=== PATIENT | female | born 1945 | race Caucasian/White ===

== ENCOUNTER 2019-01-02 01:08 | Observation (INO) | payer SELFPAY ==
[2019-01-02] MEDS ORDERED: ONDANSETRON 4 MG/2 ML VIAL IVPB ONE (01:51)
[2019-01-02] MEDS ORDERED: SODIUM CHLORIDE 1,000 ML IV STA ×2 (01:51→03:56)
[2019-01-02] MEDS ORDERED: FAMOTIDINE 20 MG/50 ML IVPB 20 MG/50 ML MG IVPB ONE ×2 (01:51→02:11)
--- NOTE | 2019-01-02 01:56 | PDOC ---
Attending Attestation - Resident Resident Name: SherronSolange - ED Attending Attestation I have performed the following: I have examined & evaluated the patient, The case was reviewed & discussed with the resident, I agree w/resident's findings & plan, Exceptions are as noted - HPI HPI: 73 yo F history HTN, DM presents with abdominal pain. She is currently here visiting from [place], has been in the [place] for the past 3 weeks. She denies any sick contacts. Denies fever. +N/V/D. She has had similar symptoms in the past but this is worse. - Physicial Exam PE: GENERAL: Awake, alert, and fully oriented, in no acute distress HEAD: No signs of trauma EYES: PERRLA, EOMI, sclera anicteric, conjunctiva clear ENT: Auricles normal inspection, hearing grossly normal, nares patent, oropharynx clear without exudates. Dry mucosa NECK: Normal ROM, supple, no lymphadenopathy, JVD, or masses LUNGS: Breath sounds equal, clear to auscultation bilaterally. No wheezes, and no crackles HEART: Regular rate and rhythm, normal S1 and S2, no murmurs, rubs or gallops ABDOMEN: Soft, +upper abdominal tenderness, +hyperactive bowel sounds. + Guarding, no rebound. No masses EXTREMITIES: Normal range of motion, no edema. No clubbing or cyanosis. No cords, erythema, or tenderness NEUROLOGICAL: Cranial nerves II through XII grossly intact. Normal speech, normal gait. Motor and sensation intact SKIN: Warm, Dry, normal turgor, no rashes or lesions noted. - Medical Decision Making Pt noted to have leukocytosis and elevated lactate. Will obtain CT to r/o any intraabdominal pathology.
[2019-01-02 01:59] VITALS: BMI 24.5
[2019-01-02] MEDS ORDERED: ONDANSETRON 4 MG/2 ML VIAL ONE (02:11)
[2019-01-02 02:16] LABS: BASO % 0.3 % (0-2.0); EOS % 0.4 % (0-4.5); HEMATOCRIT 39.6 % (32.4-45.2); HEMOGLOBIN 13.4 GM/dL (10.7-15.3); LYMPH % 7.4 % (8-40); MCH 30.9 pg (25.7-33.7); MCHC 33.7 g/dl (32.0-36.0); MEAN CELL VOLUME 91.6 fl (80-96); MEAN PLT VOLUME 8.7 fl (7.5-11.1); MONO % 5.9 % (3.8-10.2); PLATELET COUNT 249 K/MM3 (134-434); RBC 4.33 M/mm3 (3.60-5.2); WHITE BLOOD COUNT 14.7 K/mm3 (4.0-10.0)
--- NOTE | 2019-01-02 02:19 | PDOC ---
History of Present Illness - General Chief Complaint: Pain, Acute Stated Complaint: ABD PAIN Time Seen by Provider: 01/02/19 01:41 History Source: Patient, Family (daughter) Exam Limitations: Language Barrier - History of Present Illness Initial Comments: 01/02/19 02:10 Pt is a 73yo F with PMH of DM, HTN, Kidney stones BIBA to ED with complaints of sudden onset abdominal pain that started 2 hours ago. Per daughter pt was sitting and having severe pains. In the past 30 minutes she vomited (nbnb) 3 times and had diarrhea 3 times. She describes the pain as a sharp pain in the umbilicus/epigastric area that does not radiate. She did not eat anything out of the usual, no sick contacts. She lives in [place] and came here to visit end of November. Daughter brought her in because pt was feeling lightheaded and seemed to have passed out (did not fall, did not hit her head). No alcohol use. Denies fever, chills, chest pain, sob, back pain, urinary symptoms. PMD: in [place] PMH: see hpi PSH: cholecystectomy Meds: metformin? Allergies: ibuprofen Social: denies Past History - Past Medical History Allergies/Adverse Reactions: Allergies Allergy/AdvReac Type Severity Reaction Status Date / Time ibuprofen Allergy Unknown Verified 01/02/19 02:00 Home Medications: Ambulatory Orders Unobtainable 01/02/19 - Suicide/Smoking/Psychosocial Hx Smoking History: Never smoked Hx Alcohol Use: No Drug/Substance Use Hx: No Review of Systems - Review of Systems Constitutional: No: Chills, Fever, Weakness HEENTM: No: Symptoms Reported Respiratory: No: Cough, Shortness of Breath Cardiac (ROS): Yes: Lightheadedness, Syncope. No: Chest Pain, Palpitations ABD/GI: Yes: Diarrhea, Nausea, Vomiting, Abdominal cramping. No: Constipated, Rectal Bleeding, Tarry Stools : No: Symptoms Reported Musculoskeletal: No: Symptoms Reported Integumentary: No: Symptoms Reported Neurological: No: Symptoms reported *Physical Exam - Vital Signs Last Vital Signs Temp Pulse Resp BP Pulse Ox 97.8 F 60 16 115/71 96 01/02/19 01:30 01/02/19 01:30 01/02/19 01:30 01/02/19 01:30 01/02/19 01:30 - Physical Exam General Appearance: Yes: Nourished, Appropriately Dressed. No: Apparent Distress HEENT: positive: EOMI, JASMIN, Normal ENT Inspection Neck: positive: Trachea midline, Supple. negative: Lymphadenopathy (R), Lymphadenopathy (L) Respiratory/Chest: positive: Lungs Clear, Normal Breath Sounds. negative: Crackles Cardiovascular: positive: Regular Rhythm, Regular Rate, S1, S2. negative: Edema , JVD, Murmur Vascular Pulses: Carotid (R): 2+, Carotid (L): 2+, Dorsalis-Pedis (R): 2+, Doralis-Pedis (L): 2+ Gastrointestinal/Abdominal: positive: Normal Bowel Sounds, Soft. negative: Tender, Protuberent, Distended, Guarding, Rebound, Tenderness, Hernia Musculoskeletal: negative: CVA Tenderness Extremity: positive: Normal Capillary Refill Integumentary: positive: Normal Color, Dry, Warm Neurologic: positive: coil spring assembler II-XII NML intact, Fully Oriented, Alert, Normal Mood/ Affect, Normal Response, Motor Strength 01/28 ED Treatment Course - LABORATORY CBC & Chemistry Diagram: 01/02/19 02:07 01/02/19 02:07 Medical Decision Making - Medical Decision Making 01/02/19 02:19 Pt is a 73yo F with PMH of DM, HTN, Kidney stones BIBA to ED with complaints of sudden onset abdominal pain that started 2 hours ago. Per daughter pt was sitting and having severe pains. In the past 30 minutes she vomited (nbnb) 3 times and had diarrhea 3 times. She describes the pain as a sharp pain in the umbilicus/epigastric area that does not radiate. She did not eat anything out of the usual, no sick contacts. She lives in [place] and came here to visit end of November. Daughter brought her in because pt was feeling lightheaded and seemed to have passed out (did not fall, did not hit her head). No alcohol use. Denies fever, chills, chest pain, sob, back pain, urinary symptoms. Vitals: wnl PE: nontender abdomen ddx includes but not limited to GE, gastritis, pancreatitis, cholecystitis, gastroparesis, acs, colitis, AAA, ischemia, sbo -labs -ekg -fluids, zofran, pepcid 01/02/19 03:41 labs significant for wbc 14.7 and lact 3.3 will continue to give fluids. -CTAP -IV Tylenol 01/02/19 04:20 CTAP shows fibroid uterus and pelvic fluid. unexplained lactic acidosis and leukocytosis with abdominal pain. will admit obs. UA pending. *DC/Admit/Observation/Transfer Diagnosis at time of Disposition: Lactic acid increased Abdominal pain Qualifiers: Abdominal location: periumbilical Qualified Code(s): R10.33 - Periumbilical pain Leukocytosis Qualifiers: Leukocytosis type: unspecified Qualified Code(s): D72.829 - Elevated white blood cell count, unspecified - Discharge Dispostion Condition at time of disposition: Good - Referrals - Patient Instructions - Post Discharge Activity
[2019-01-02 02:39] LABS: ALBUMIN 3.4 g/dl (3.4-5.0); ALK PHOS 62 U/L (45-117); ANION GAP 5 MMOL/L (8-16); BILIRUBIN,TOTAL 0.4 mg/dL (0.2-1); BLOOD UREA NITROGEN 17 mg/dL (7-18); CHLORIDE 102 mmol/L (98-107); CO2 32 mmol/L (21-32); CREATININE 0.7 mg/dL (0.55-1.3); GLUCOSE,RANDOM 125 mg/dL (74-106); POTASSIUM 3.5 mmol/L (3.5-5.1); SGOT/AST 15 U/L (15-37); SGPT/ALT 18 U/L (13-61); SODIUM 138 mmol/L (136-145); TOT PROT 6.6 g/dl (6.4-8.2)
[2019-01-02 02:47] LABS: LIPASE 196 U/L (73-393)
[2019-01-02] MEDS ORDERED: ACETAMINOPHEN 1000 MG/100 ML VIAL (NON FORMULARY) IVPB ONE (03:56)
[2019-01-02] MEDS ORDERED: ACETAMINOPHEN INJECTION 100 ML IVPB ONE (03:59)
[2019-01-02] MEDS ORDERED: ONDANSETRON 4 MG/2 ML VIAL IVPUSH PRN (05:19)
--- NOTE | 2019-01-02 05:31 | HP ---
CHIEF COMPLAINT: abd pain PCP: HISTORY OF PRESENT ILLNESS: Patient is a 73 y/o F w/ PMHx DM, HTN, kidney stones, s/p CCY, BIBA c/o sudden onset abd pain, non-radiating, centered on epigastrum, since several hours earlier, a/w NBNB vomiting x 3 and diarrhea x 3. Additionally Pt felt light- headed and became lethargic and her daughter activated EMS. She is from [place] where she receives her medical care and came to visit family in late November. Unable to provide home medications; may be on metformin. On presentation , afebrile with stable vitals, however WBC 14.7 and l[address] acid [address]3. [address] a/p showed fibroid uterus and pelvic fluid, otherwise unremarkable per IOC. Received 2L NS, Ofirmev, Pepcid, and Zofran in ED and improved significantly, was largely asymptomatic by time of encounter. ER course was notable for: (1) WBC 14.7 and lactic acid 3.3 (2) CT a/p showed fibroid uterus and pelvic fluid, otherwise unremarkable (3) afebrile, stable VS Recent Travel: To [place] from [place] PAST MEDICAL HISTORY: As per HPI PAST SURGICAL HISTORY: As per HPI Social History: Smoking: Alcohol: Drugs: Family History: Allergies ibuprofen Allergy (Unknown, Verified 01/02/19 02:00) HOME MEDICATIONS: Home Medications Medication Instructions Recorded Unobtainable 01/02/19 REVIEW OF SYSTEMS As per [facility] PHYSICAL EXAMINATION Vital Signs - 24 hr 01/02/19 01:30 Temperature 97.8 F Pulse Rate 60 Respiratory 16 Rate Blood Pressure 115/71 O2 Sat by Pulse 96 Oximetry (%) GENERAL: A&Ox3, NAD HEENT: NC/AT, PERRLA, EOMI, MMM NECK: Normal range of motion, supple without lymphadenopathy, JVD, or masses. LUNGS: CTA b/l HEART: RRR no m/r/g ABDOMEN: +bs, soft, non-tender to deep palpation although affirms some residual pain in epigastrum, non-distended MUSCULOSKELETAL: Normal range of motion at all joints. No bony deformities or tenderness. No CVA tenderness. UPPER EXTREMITIES: 2+ pulses, warm, well-perfused. No cyanosis. No clubbing. No peripheral edema. LOWER EXTREMITIES: 2+ pulses, warm, well-perfused. No calf tenderness. No peripheral edema. NEUROLOGICAL: dock hand, motor, sensory systems w/o focal deficit PSYCHIATRIC: Cooperative. Good eye contact. Appropriate mood and affect. SKIN: Warm, dry, normal turgor, no rashes or lesions noted, normal capillary refill. Laboratory Results - last 24 hr 01/02/19 01/02/19 01/02/19 02:07 02:07 02:07 WBC 14.7 H RBC 4.33 Hgb 13.4 Hct 39.6 MCV 91.6 MCH 30.9 MCHC 33.7 RDW 13.0 Plt Count 249 MPV 8.7 Absolute Neuts (auto) 12.7 H Neutrophils % 86.0 H Lymphocytes % 7.4 L Monocytes % 5.9 Eosinophils % 0.4 Basophils % 0.3 Nucleated RBC % 0 Sodium 138 Potassium 3.5 Chloride 102 Carbon Dioxide 32 Anion Gap 5 L BUN 17 Creatinine 0.7 Creat Clearance w eGFR 82.02 Random Glucose 125 H Lactic Acid 3.3 H* Calcium 9.0 Total Bilirubin 0.4 AST 15 ALT 18 Alkaline Phosphatase 62 Troponin I Total Protein 6.6 Albumin 3.4 Lipase 01/02/19 02:07 WBC RBC Hgb Hct MCV MCH MCHC RDW Plt Count MPV Absolute Neuts (auto) Neutrophils % Lymphocytes % Monocytes % Eosinophils % Basophils % Nucleated RBC % Sodium Potassium Chloride Carbon Dioxide Anion Gap BUN Creatinine Creat Clearance w eGFR Random Glucose Lactic Acid Calcium Total Bilirubin AST ALT Alkaline Phosphatase Troponin I < 0.02 Total Protein Albumin Lipase 196 ASSESSMENT/PLAN: 73 y/o F w/ PMHx DM, HTN, kidney stones, s/p CCY, BIBA c/o sudden onset abd pain , non-radiating, centered on epigastrum, a/w NBNB vomiting and diarrhea, unremarkable CT a/p, found to have lactic acidosis and leukocytosis (unknown if on metformin) -likely viral GE -BCx, UCx, UA -empiric levaquin/flagyl -CXR -repeat CBC, BMP, Mg, Phos, lactate -BGM, SSI -LR @ 75 -Zofran PRN -SCDs for DVT PPx -NPO -observe on med/surg Visit type - Emergency Visit Emergency Visit: Yes Care time: The patient presented to the Emergency Department on the above date and was hospitalized for further evaluation of their emergent condition. - New Patient This patient is new to me today: Yes Date on this admission: 01/02/19 - Critical Care Critical Care patient: No
--- NOTE | 2019-01-02 05:31 | PN ---
Teaching Attending Note Name of Resident: Ricky Doshi ATTENDING PHYSICIAN STATEMENT I saw and evaluated the patient. I reviewed the resident's note and discussed the case with the resident. I agree with the resident's findings and plan as documented. SUBJECTIVE: Patient is a 73 year old woman with PMH of NIDDM, HTN, Kidney stones and cholecystectomy who presents to the ER with complaints of sudden onset abdominal pain that started 2 hours ago. Per daughter she was sitting and having severe pains. In the past 30 minutes prior to arrival she vomited 3 times and had diarrhea 3 times. She describes the pain as a sharp pain in the umbilicus/epigastric area that does not radiate. She did not eat anything unusual, no sick contacts. She lives in [place] and came here to visit end of November. Daughter brought her in because patient was feeling lightheaded and appeared like she was going to pass out. Denies alcohol or illicit drug use. Denies fever , chills, chest pain, SOB, back pain, dysuria or hematuria. OBJECTIVE: Alert Vital Signs Period Temp Pulse Resp BP Sys/Sandoval Pulse Ox Last 24 Hr 97.8 F 60 16 115/71 96 HEENT: No Jaundice, eye redness or discharge, PERRLA, EOMI. Normocephalic, atraumatic. External ears are normal and hearing is grossly intact. No nasal discharge. Neck: Supple, nontender. No palpable adenopathy or thyromegaly. No JVD Chest: Good effort. Clear to auscultation and percussion. Heart: Regular. No S3, rub or murmur Abdomen: Not distended, soft, periumblical and upper abdominal tenderness and no HSM. No rebound or guarding. Normal bowel sounds. Ext: Peripheral pulses intact. No leg edema. Skin: Warm and dry. No petechiae, rash or ecchymosis. Neuro: Alert. Oriented x3. CN 2-12 grossly intact. Sensation grossly intact in all four extremities and DTR are symmetric. Psych: Appropriate mood and affect. Good insight. Home Medications Medication Instructions Recorded Unobtainable 01/02/19 Abnormal Lab Results 01/02/19 01/02/19 01/02/19 02:07 02:07 02:07 WBC 14.7 H Absolute Neuts (auto) 12.7 H Neutrophils % 86.0 H Lymphocytes % 7.4 L Anion Gap 5 L Random Glucose 125 H Lactic Acid 3.3 H* ASSESSMENT AND PLAN: 1. Gastroenteritis - Viral gastroenteritis is a possible cause, but cannot rule out a bacterial etiology, and urinalysis is pending. Less likely is that she may have "passed" a kidney stone. CT abd/pelvis with IV contrast did not show any acute abnormality. Patient does not remember her medication list - may be on Metformin which may partly explain leukocytosis. Will trend lactic acid, get urinalysis, EKG, Flu swab, CXR, urine and blood cultures and send stool for analysis, ova and parasites and C. Diff. Already got bolus IV NS in the ER. Will continue IV NS and treat with IV Flagyl and Levaquin pending culture report. Consult GI. 2. DM For now, we will hold the home diabetes drugs and implement sliding scale insulin regimen. Provide comprehensive diabetes care with patient teaching and counseling about the importance of adherence to prescribed diabetes regimen, euglycemia, eye care and foot care. 3. DVT prophylaxis - Lovenox 40 mg SQ q 24 hours. 4. Advance directives - Full code
[2019-01-02] MEDS: INSULIN SLIDING SCALE (NOVOLOG) 1 VIAL SQ SCH ×4 (06:54→21:51)
[2019-01-02 07:17] LABS: PH,URINE 5.5 (5.0-8.0); URINE APPEARANCE CLEAR; URINE BILIRUBIN NEGATIVE (NEGATIVE); URINE COLOR YELLOW; URINE GLUCOSE (UA) NEGATIVE (NEGATIVE); URINE KETONE NEGATIVE (NEGATIVE); URINE LEUK ESTERASE NEGATIVE (NEGATIVE); URINE NITRITE NEGATIVE (NEGATIVE); URINE PROTEIN NEGATIVE (NEGATIVE); URINE UROBILINOGEN 0.2 mg/dL (0.2-1.0)
[2019-01-02] MEDS ORDERED: ACETAMINOPHEN 500 MG TABLET (FP) PO PRN (08:43)
--- NOTE | 2019-01-02 09:20 | PN ---
Teaching Attending Note Name of Resident: Tita Conrad ATTENDING PHYSICIAN STATEMENT I saw and evaluated the patient. I reviewed the resident's note and discussed the case with the resident. I agree with the resident's findings and plan as documented. SUBJECTIVE: Ms Hernandez complains of vomiting. Denies cp and sob. OBJECTIVE: Last Vital Signs Temp Pulse Resp BP Pulse Ox 36.6 C 69 18 105/50 L 97 01/02/19 08:54 01/02/19 08:54 01/02/19 08:54 01/02/19 08:54 01/02/19 08:54 Gen: nad Pulm: ctab w/o w/r/r CV: rrr w/o m/r/g Abd: +bs, s/nt/nd Ext: no c/c/e ASSESSMENT AND PLAN: Problem List - Problems (1) Gastroenteritis Assessment/Plan: -possible viral, but concerning since lactic acidosis and leukocytosis -hydration -continue empiric levaquin and flagyl -follow up stool studies -advance diet as tolerated Code(s): K52.9 - NONINFECTIVE GASTROENTERITIS AND COLITIS, UNSPECIFIED (2) Lactic acid increased Assessment/Plan: -improved with hydration Code(s): E87.2 - ACIDOSIS
[2019-01-02 09:49] LABS: BASO % 0.3 % (0-2.0); EOS % 0.9 % (0-4.5); HEMATOCRIT 38.2 % (32.4-45.2); HEMOGLOBIN 13.2 GM/dL (10.7-15.3); MCH 31.6 pg (25.7-33.7); MCHC 34.6 g/dl (32.0-36.0); MEAN CELL VOLUME 91.4 fl (80-96); MEAN PLT VOLUME 8.5 fl (7.5-11.1); MONO % 6.9 % (3.8-10.2); NEUT % 78.9 % (42.8-82.8); PLATELET COUNT 230 K/MM3 (134-434); RBC 4.18 M/mm3 (3.60-5.2); RDW 13.3 % (11.6-15.6); WHITE BLOOD COUNT 8.9 K/mm3 (4.0-10.0)
[2019-01-02] MEDS: LACTATED RINGERS SOLUTION 1,000 ML IV SCH (09:59)
[2019-01-02 10:00] LABS: ANION GAP 7 MMOL/L (8-16); BLOOD UREA NITROGEN 12 mg/dL (7-18); CHLORIDE 105 mmol/L (98-107); CO2 32 mmol/L (21-32); CREATININE 0.7 mg/dL (0.55-1.3); GLUCOSE,RANDOM 98 mg/dL (74-106); MAGNESIUM 1.5 mg/dL (1.8-2.4); PHOSPHOROUS 3.1 mg/dL (2.5-4.9); POTASSIUM 3.4 mmol/L (3.5-5.1); SODIUM 144 mmol/L (136-145)
[2019-01-02] MEDS ORDERED: HEPARIN NA (PORCINE) 5,000 UNITS/ML 1ML VIAL ONE (11:19)
[2019-01-02] MEDS: HEPARIN NA (PORCINE) 5,000 UNITS/ML 1ML VIAL SQ SCH ×2 (12:24→21:52)
--- NOTE | 2019-01-02 14:33 | EKG ---
Test Reason : Blood Pressure : / mmHG Vent. Rate : 081 BPM Atrial Rate : 081 BPM P-R Int : 198 ms QRS Dur : 084 ms QT Int : 380 ms P-R-T Axes : 083 071 036 degrees QTc Int : 441 ms SINUS RHYTHM WITH OCCASIONAL PREMATURE VENTRICULAR COMPLEXES NONSPECIFIC ST AND T WAVE ABNORMALITY ABNORMAL ECG NO PREVIOUS ECGS AVAILABLE Confirmed by MD Yovani, Mark ([id number]) on 01/02/2019 2:33:18 PM Referred By: Amy JOHN Confirmed By:Mark Pina MD
--- NOTE | 2019-01-02 18:59 | PN ---
Physical Exam: SUBJECTIVE: Patient seen and examined. She is still complaining of abdominal pain but improved, noticed small amount of blood on paper when wiping. OBJECTIVE: Vital Signs Period Temp Pulse Resp BP Sys/Sandoval Pulse Ox Last 24 Hr 97.5 F-98.4 F 59-69 16-20 105-145/50-84 94-97 GENERAL: The patient is awake, alert, and fully oriented, in no acute distress. HEAD: Normal with no signs of trauma. EYES: PERRL, extraocular movements intact, sclera anicteric. ENT: Oopharynx clear without exudates, moist mucous membranes. NECK: Trachea midline, full range of motion, supple. LUNGS: Breath sounds equal, clear to auscultation bilaterally, no wheezes, no crackles, no accessory muscle use. HEART: Regular rate and rhythm, S1, S2 without murmur, rub or gallop. ABDOMEN: Soft, nontender, nondistended, normoactive bowel sounds, no guarding, no rebound, no hepatosplenomegaly, no masses. EXTREMITIES: 2+ pulses, warm, well-perfused, no edema. NEUROLOGICAL: Normal speech, gait not observed. PSYCH: Normal mood, normal affect. SKIN: Warm, dry, normal turgor, no rashes. Laboratory Results - last 24 hr 01/02/19 01/02/19 01/02/19 02:07 02:07 02:07 WBC 14.7 H RBC 4.33 Hgb 13.4 Hct 39.6 MCV 91.6 MCH 30.9 MCHC 33.7 RDW 13.0 Plt Count 249 MPV 8.7 Absolute Neuts (auto) 12.7 H Neutrophils % 86.0 H Lymphocytes % 7.4 L Monocytes % 5.9 Eosinophils % 0.4 Basophils % 0.3 Nucleated RBC % 0 Sodium 138 Potassium 3.5 Chloride 102 Carbon Dioxide 32 Anion Gap 5 L BUN 17 Creatinine 0.7 Creat Clearance w eGFR 82.02 POC Glucometer Random Glucose 125 H Lactic Acid 3.3 H* Calcium 9.0 Phosphorus Magnesium Total Bilirubin 0.4 AST 15 ALT 18 Alkaline Phosphatase 62 Troponin I Total Protein 6.6 Albumin 3.4 Lipase Urine Color Urine Appearance Urine pH Ur Specific [place] Urine Protein Urine Glucose (UA) Urine Ketones Urine Blood Urine Nitrite Urine Bilirubin Urine Urobilinogen Ur Leukocyte Esterase 01/02/19 01/02/19 01/02/19 02:07 06:30 06:50 WBC RBC Hgb Hct MCV MCH MCHC RDW Plt Count MPV Absolute Neuts (auto) Neutrophils % Lymphocytes % Monocytes % Eosinophils % Basophils % Nucleated RBC % Sodium Potassium Chloride Carbon Dioxide Anion Gap BUN Creatinine Creat Clearance w eGFR POC Glucometer 98 Random Glucose Lactic Acid Calcium Phosphorus Magnesium Total Bilirubin AST ALT Alkaline Phosphatase Troponin I < 0.02 Total Protein Albumin Lipase 196 Urine Color Yellow Urine Appearance Clear Urine pH 5.5 Ur Specific [place] 1.042 H Urine Protein Negative Urine Glucose (UA) Negative Urine Ketones Negative Urine Blood Negative Urine Nitrite Negative Urine Bilirubin Negative Urine Urobilinogen 0.2 Ur Leukocyte Esterase Negative 01/02/19 01/02/19 01/02/19 08:40 09:15 09:15 WBC 8.9 RBC 4.18 Hgb 13.2 Hct 38.2 MCV 91.4 MCH 31.6 MCHC 34.6 RDW 13.3 Plt Count 230 MPV 8.5 Absolute Neuts (auto) 7.0 Neutrophils % 78.9 Lymphocytes % 13.0 D Monocytes % 6.9 Eosinophils % 0.9 D Basophils % 0.3 Nucleated RBC % 0 Sodium 144 Potassium 3.4 L Chloride 105 Carbon Dioxide 32 Anion Gap 7 L BUN 12 Creatinine 0.7 Creat Clearance w eGFR 82.02 POC Glucometer Random Glucose 98 Lactic Acid 2.1 H Calcium 8.0 L Phosphorus 3.1 Magnesium 1.5 L Total Bilirubin AST ALT Alkaline Phosphatase Troponin I Total Protein Albumin Lipase Urine Color Urine Appearance Urine pH Ur Specific [place] Urine Protein Urine Glucose (UA) Urine Ketones Urine Blood Urine Nitrite Urine Bilirubin Urine Urobilinogen Ur Leukocyte Esterase 01/02/19 01/02/19 12:20 16:45 WBC RBC Hgb Hct MCV MCH MCHC RDW Plt Count MPV Absolute Neuts (auto) Neutrophils % Lymphocytes % Monocytes % Eosinophils % Basophils % Nucleated RBC % Sodium Potassium Chloride Carbon Dioxide Anion Gap BUN Creatinine Creat Clearance w eGFR POC Glucometer 86 75 Random Glucose Lactic Acid Calcium Phosphorus Magnesium Total Bilirubin AST ALT Alkaline Phosphatase Troponin I Total Protein Albumin Lipase Urine Color Urine Appearance Urine pH Ur Specific [place] Urine Protein Urine Glucose (UA) Urine Ketones Urine Blood Urine Nitrite Urine Bilirubin Urine Urobilinogen Ur Leukocyte Esterase Active Medications Generic Name Dose Route Start Last Admin Trade Name Freq PRN Reason Stop Dose Admin Acetaminophen 500 mg 01/02/19 08:43 Tylenol - PO Q6H PRN PAIN LEVEL 4 - 6 Heparin Sodium (Porcine) 5,000 unit 01/02/19 10:00 01/02/19 12:24 Heparin - SQ 5,000 unit BID MARLA Administration Metronidazole 500 mg in 100 mls @ 100 mls/hr 01/02/19 05:30 01/02/19 17:35 Flagyl 500mg Premixed Ivpb - IVPB 100 mls/hr Q8H-IV MARLA Administration Lactated Ringer's 1,000 mls @ 75 mls/hr 01/02/19 05:30 01/02/19 09:59 Lactated Ringers Solution IV 75 mls/hr ASDIR MARLA Administration Insulin Aspart 1 vial 01/02/19 07:00 01/02/19 17:27 Novolog Vial Sliding Scale - SQ Not Given [facility] MARLA Protocol Ondansetron HCl 4 mg 01/02/19 05:19 Zofran Injection IVPUSH Q6H PRN NAUSEA ASSESSMENT/PLAN: 73 y/o F w/ PMHx DM, HTN, nephrolithiasis, s/p CCY, BIBA c/o sudden onset abd pain, non-radiating, centered on epigastrum, a/w NBNB vomiting and diarrhea, admitted for gastroenteritis with lactic acidosis. Gastroenteritis/Colitis/mesenteric ischemia: -unremarkable CT a/p, found to have lactic acidosis 3.3 that improved -leukocytosis of 14.7 -due to the patiet age ad comorbidieties will observe -BCx, UCx, UA -empiric levaquin/flagyl, will continue today -repeat CBC, BMP, Mg, Phos, lactate -Zofran PRN -stool studies ordered DMII: -BGM ACHS -ISS, ACHS - F/E/N;LR @ 75/no changes DVT PPX Heparin sq Dispo: observe on med/surg Problem List - Problems (1) Abdominal pain Code(s): R10.9 - UNSPECIFIED ABDOMINAL PAIN Qualifiers: Abdominal location: periumbilical Qualified Code(s): R10.33 - Periumbilical pain (2) Gastroenteritis Code(s): K52.9 - NONINFECTIVE GASTROENTERITIS AND COLITIS, UNSPECIFIED (3) Lactic acid increased Code(s): E87.2 - ACIDOSIS (4) Leukocytosis Code(s): D72.829 - ELEVATED WHITE BLOOD CELL COUNT, UNSPECIFIED Qualifiers: Leukocytosis type: unspecified Qualified Code(s): D72.829 - Elevated white blood cell count, unspecified Visit type - Emergency Visit Emergency Visit: Yes ED Registration Date: 01/02/19 Care time: The patient presented to the Emergency Department on the above date and was hospitalized for further evaluation of their emergent condition. - New Patient This patient is new to me today: No - Critical Care Critical Care patient: No
[2019-01-03] MEDS: LACTATED RINGERS SOLUTION 1,000 ML IV SCH ×2 (02:37→09:27)
[2019-01-03] MEDS ORDERED: PT OWN MED DRAWER 7, Y5N ONE (05:45)
[2019-01-03] MEDS: INSULIN SLIDING SCALE (NOVOLOG) 1 VIAL SQ SCH ×2 (06:29→11:28)
[2019-01-03 07:58] LABS: BASO % 0.5 % (0-2.0); EOS % 3.2 % (0-4.5); HEMATOCRIT 35.7 % (32.4-45.2); HEMOGLOBIN 12.4 GM/dL (10.7-15.3); LYMPH % 36.4 % (8-40); MCH 31.3 pg (25.7-33.7); MCHC 34.8 g/dl (32.0-36.0); MEAN PLT VOLUME 8.5 fl (7.5-11.1); MONO % 8.8 % (3.8-10.2); NEUT % 51.1 % (42.8-82.8); PLATELET COUNT 216 K/MM3 (134-434); RBC 3.96 M/mm3 (3.60-5.2); RDW 13.4 % (11.6-15.6)
[2019-01-03 08:25] LABS: ANION GAP 8 MMOL/L (8-16); BLOOD UREA NITROGEN 10 mg/dL (7-18); CALCIUM 7.7 mg/dL (8.5-10.1); CHLORIDE 105 mmol/L (98-107); CO2 31 mmol/L (21-32); CREATININE 0.7 mg/dL (0.55-1.3); GLUCOSE,RANDOM 86 mg/dL (74-106); MAGNESIUM 1.6 mg/dL (1.8-2.4); PHOSPHOROUS 3.3 mg/dL (2.5-4.9); POTASSIUM 3.1 mmol/L (3.5-5.1); SODIUM 144 mmol/L (136-145)
[2019-01-03] MEDS ORDERED: POTASSIUM CHLORIDE TABS 20 MEQ TABLET.ER (FP) PO ONE (09:04)
[2019-01-03] MEDS ORDERED: MAGNESIUM OXIDE 400 MG TABLET (FP) PO ONE (09:15)
[2019-01-03] MEDS: HEPARIN NA (PORCINE) 5,000 UNITS/ML 1ML VIAL SQ SCH (09:54)
--- NOTE | 2019-01-03 11:19 | PN ---
Teaching Attending Note Name of Resident: Tita Conrad ATTENDING PHYSICIAN STATEMENT I saw and evaluated the patient. I reviewed the resident's note and discussed the case with the resident. I agree with the resident's findings and plan as documented with exceptions below. SUBJECTIVE: Patient seen and examined. some epigastric discomfort, reports is like 'gas'. No further fevers, chills, nausea or vomiting. OBJECTIVE: Vital Signs Period Temp Pulse Resp BP Sys/Sandoval Pulse Ox Last 24 Hr 97.5 F-98.8 F 56-76 18-20 114-145/63-84 94-94 Intake & Output 12/31/18 01/01/19 01/02/19 01/03/19 23:59 23:59 23:59 23:59 Intake Total 450 900 Balance 450 900 Weight 164 lb General: sitting in chair in no acute distress Abdomen: soft, mild superficial epigastric tenderness, non tender otherwise, no voluntary or involuntary guarding or rigidity, positive bowel sounds Chest: CTAB, no rales or wheezing Extremities: no edema Home Medications Medication Instructions Recorded Glipizide 5 mg PO DAILY 01/02/19 Levothyroxine 125 mcg DAILY 01/02/19 Losartan/Hydrochlorothiazide 1 each PO DAILY 01/02/19 [Losartan-Hctz 100-25 mg Tab] Meclizine HCl 01/02/19 Active Medications Acetaminophen (Tylenol -) 500 mg PO Q6H PRN PRN Reason: PAIN LEVEL 4 - 6 Last Admin: 01/02/19 21:51 Dose: 500 mg Heparin Sodium (Porcine) (Heparin -) 5,000 unit SQ BID MARLA Last Admin: 01/03/19 09:54 Dose: 5,000 unit Lactated Ringer's (Lactated Ringers Solution) 1,000 mls @ 75 mls/hr IV ASDIR MARLA Last Admin: 01/03/19 02:37 Dose: 75 mls/hr Insulin Aspart (Novolog Vial Sliding Scale -) 1 vial SQ ACHS [facility]; Protocol Last Admin: 01/03/19 06:29 Dose: Not Given Ondansetron HCl (Zofran Injection) 4 mg IVPUSH Q6H PRN PRN Reason: NAUSEA Laboratory Results - last 24 hr 01/02/19 01/02/19 01/02/19 12:20 16:45 21:42 WBC RBC Hgb Hct MCV MCH MCHC RDW Plt Count MPV Absolute Neuts (auto) Neutrophils % Lymphocytes % Monocytes % Eosinophils % Basophils % Nucleated RBC % Sodium Potassium Chloride Carbon Dioxide Anion Gap BUN Creatinine Creat Clearance w eGFR POC Glucometer 86 75 85 Random Glucose Calcium Phosphorus Magnesium 01/03/19 01/03/19 01/03/19 06:27 07:00 07:00 WBC 5.0 RBC 3.96 Hgb 12.4 Hct 35.7 MCV 90.0 MCH 31.3 MCHC 34.8 RDW 13.4 Plt Count 216 MPV 8.5 Absolute Neuts (auto) 2.6 Neutrophils % 51.1 D Lymphocytes % 36.4 D Monocytes % 8.8 Eosinophils % 3.2 D Basophils % 0.5 Nucleated RBC % 0 Sodium 144 Potassium 3.1 L Chloride 105 Carbon Dioxide 31 Anion Gap 8 BUN 10 Creatinine 0.7 Creat Clearance w eGFR 82.02 POC Glucometer 82 Random Glucose 86 Calcium 7.7 L Phosphorus 3.3 Magnesium 1.6 L Microbiology 01/02/19 08:40 Blood - Peripheral Venous Blood Culture - Preliminary NO GROWTH OBTAINED AFTER 24 HOURS, INCUBATION TO CONTINUE FOR 4 DAYS. 01/02/19 08:15 Blood - Peripheral Venous Blood Culture - Preliminary NO GROWTH OBTAINED AFTER 24 HOURS, INCUBATION TO CONTINUE FOR [address] A/p results reviewed Microbiology 01/03/19 10:55 Stool Clostridioides difficile Antigen - Final 01/03/19 10:55 Stool Clostridioides difficile Toxin Assay - Final 01/02/19 08:40 Blood - Peripheral Venous Blood Culture - Preliminary NO GROWTH OBTAINED AFTER 24 HOURS, INCUBATION TO CONTINUE FOR 4 DAYS. 01/02/19 08:15 Blood - Peripheral Venous Blood Culture - Preliminary NO GROWTH OBTAINED AFTER 24 HOURS, INCUBATION TO CONTINUE FOR 4 DAYS. ASSESSMENT AND PLAN: 73 yof with PMHx of NIDM, HTN, kidney stones, s/p CCY, admitted with abdominal pain, vomiting, diarrhea and dehydration -Abdominal pain/vomiting/diarrhea, suspect self limiting gastroenteritis vs food poisoning -Dehydration -Leucocytosis, suspect from stress/dehydration rather than bacterial infection -Lactic acidosis suspect from dehydration -Hypokalemia -Hypomagnesemia -NIDDM -HTN -h/o kidney stones Plan: Leucocytosis resolved. afebrile. CT A/P neg for concerns. No further vomiting or diarrhea. monitor off abx. supportive care, IVF, PPI, maalox, zofran. Replete K/Mg. Stool C difficile neg, cultures pending but low suspicion and unlikely to change current management. Blood sugars noted, hold glipizide on d/c to be resumed based on blood sugars after discussion with PCP. Education provided to patient/family. BP rising, resume home BP meds. TOlerating diet well. Dispo d/c home today. Discussed with patient and nursing.
[2019-01-03 11:51] VITALS: TEMP 98.4
[2019-01-03 14:01] VITALS: BP 148/58; PULSE 59
--- NOTE | 2019-01-03 15:22 | DS ---
Physical Exam: SUBJECTIVE: Patient seen and examined, feeling good. OBJECTIVE: Vital Signs Period Temp Pulse Resp BP Sys/Sandoval Pulse Ox Last 24 Hr 98.4 F-98.8 F 56-76 17-19 114-148/58-66 94-96 PHYSICAL EXAM GENERAL: The patient is awake, alert, and fully oriented, in no acute distress, sitting in chair. HEAD: Normal with no signs of trauma. EYES: PERRL, extraocular movements intact, sclera anicteric. ENT: Oropharynx clear without exudates, moist mucous membranes. NECK: Trachea midline, full range of motion, supple. LUNGS: Breath sounds equal, clear to auscultation bilaterally, no wheezes, no crackles, no accessory muscle use. HEART: Regular rate and rhythm, S1, S2 without murmur, rub or gallop. ABDOMEN: Soft, nontender, nondistended, normoactive bowel sounds. EXTREMITIES: 2+ pulses, warm, no edema. NEUROLOGICAL: Normal speech, gait not observed. PSYCH: Normal mood, normal affect. SKIN: Warm, dry, normal turgor, no rashes. LABS Laboratory Results - last 24 hr 01/02/19 01/02/19 01/03/19 16:45 21:42 06:27 WBC RBC Hgb Hct MCV MCH MCHC RDW Plt Count MPV Absolute Neuts (auto) Neutrophils % Lymphocytes % Monocytes % Eosinophils % Basophils % Nucleated RBC % Sodium Potassium Chloride Carbon Dioxide Anion Gap BUN Creatinine Creat Clearance w eGFR POC Glucometer 75 85 82 Random Glucose Calcium Phosphorus Magnesium 01/03/19 01/03/19 01/03/19 07:00 07:00 11:42 WBC 5.0 RBC 3.96 Hgb 12.4 Hct 35.7 MCV 90.0 MCH 31.3 MCHC 34.8 RDW 13.4 Plt Count 216 MPV 8.5 Absolute Neuts (auto) 2.6 Neutrophils % 51.1 D Lymphocytes % 36.4 D Monocytes % 8.8 Eosinophils % 3.2 D Basophils % 0.5 Nucleated RBC % 0 Sodium 144 Potassium 3.1 L Chloride 105 Carbon Dioxide 31 Anion Gap 8 BUN 10 Creatinine 0.7 Creat Clearance w eGFR 82.02 POC Glucometer 92 Random Glucose 86 Calcium 7.7 L Phosphorus 3.3 Magnesium 1.6 L HOSPITAL COURSE: Date of Admission:01/02/19 Patient is a 73 y/o F w/ PMHx DM, HTN, kidney stones, s/p CCY, BIBA c/o sudden onset abd pain, non-radiating, centered on epigastrum, for several hours earlier , a/w NBNB vomiting x 3 and diarrhea x 3. Additionally Pt felt light-headed and became lethargic and her daughter activated EMS. She is from [place] where she receives her medical care and came to visit family in late November. Unable to provide home medications; may be on metformin. On presentation, afebrile with stable vitals, however WBC 14.7 and l[address] acid 3.3. CT a/p showed fibroid uterus and pelvic fluid, otherwise unremarkable per IOC. Received 2L NS, Ofirmev , Pepcid, and Zofran in ED and improved significantly. Over the course of her hospitalization leukocytosis resolved, continued to be afebrile. No further vomiting or diarrhea, monitor off abx. Stool C difficile neg, cultures were still pending pending. We resumed home medications, recommended controlling blood sugars at home. She tolerated diet well and was discharged home. Date of Discharge: 01/03/19 Minutes to complete discharge: 30 Discharge Summary Reason For Visit: LEUKOCYTOSIS,ABDOMINAL PAIN, LACTIC ACIDOSIS Current Active Problems Abdominal pain (Acute) Gastroenteritis (Acute) Lactic acid increased (Acute) Leukocytosis (Acute) Condition: Stable - Instructions Diet, Activity, Other Instructions: You were admitted with nausea, vomiting, diarrhea and belly pain, likely from viral gastroenteritis. Your symptoms rapidly improved. Your stool tests were sent results of some of which are currently pending. MEDICATIONS: Please do not take your diabetes medication glipizide on discharge. Advise checking your blood sugar checks before every meal and at night and maintain a diary. If your eating is normal and your blood sugars are persistently higher than 110 , you will need to be resumed back on your diabetes medication and discuss with your doctor in this regard. Resume your BP medication. INSTRUCTIONS: Blood sugar checks as above. Notify your doctor or resume your glipizide once eating stable and blood sugars persistently >110. FOLLOW UP: Some stool tests ("cultures") final results are currently pending, which can take few days to weeks to come back. If any concerns on the results, you will be notified, please provide a direct cell number where you can be reached. Or you can have your doctor follow up on the results in 3-4 days. Prescription for glucometer and test strips have been sent to pharmacy If you notice that you have recurrent vomiting, diarrhea, or inability to eat, you are strongly advised to hold your BP and diabetes medications and call 911 or come to the ED right away. person to contact: daughter Callejas [phone] Disposition: HOME - Home Medications Comprehensive Discharge Medication List: Ambulatory Orders Levothyroxine 125 mcg DAILY 01/02/19 Losartan/Hydrochlorothiazide [Losartan-Hctz 100-25 mg Tab] 1 each PO DAILY 01/02 Meclizine HCl 01/02/19 Lancets/Blood Glucose Strips [Fora [id number] Strp-Lnct] 1 each ASDIR # 1 combo..pkg 01/03/19 Miscellaneous Medical Supply [Glucometer Device] 1 each .ROUTE ASDIR #1 kit 07/14 Miscellaneous Medical Supply [Glucometer Test Strips #100] 1 each .ROUTE ASDIR # 1 box 01/03/19 Problem List - Problems (1) Abdominal pain Code(s): R10.9 - UNSPECIFIED ABDOMINAL PAIN Qualifiers: Abdominal location: periumbilical Qualified Code(s): R10.33 - Periumbilical pain (2) Gastroenteritis Code(s): K52.9 - NONINFECTIVE GASTROENTERITIS AND COLITIS, UNSPECIFIED (3) Lactic acid increased Code(s): E87.2 - ACIDOSIS (4) Leukocytosis Code(s): D72.829 - ELEVATED WHITE BLOOD CELL COUNT, UNSPECIFIED Qualifiers: Leukocytosis type: unspecified Qualified Code(s): D72.829 - Elevated white blood cell count, unspecified This patient is new to me today: No Emergency Visit: No Critical Care patient: No - Discharge Referral Referred to [facility] Med P.C[facility] No
== END 2019-01-03 18:13 | disposition home or self-care (01) ==
LOC: JER 01:08 → JERBED 04:17 → J6S 14:15
PROVIDERS: ADMIT Internal Medicine; ATTEND Hospitalist
PROC: 3E03329 Introduction of Other Anti-infective into Peripheral Vein, Percutaneous Approach (ICD-10-PCS; principal; 2019-01-02)
PROC: 3E033NZ Introduction of Analgesics, Hypnotics, Sedatives into Peripheral Vein, Percutaneous Approach (ICD-10-PCS; 2019-01-02)
PROC: 3E0337Z Introduction of Electrolytic and Water Balance Substance into Peripheral Vein, Percutaneous Approach (ICD-10-PCS; 2019-01-02)
PROC: 3E033GC Introduction of Other Therapeutic Substance into Peripheral Vein, Percutaneous Approach (ICD-10-PCS; 2019-01-02)
PROC: 3E013GC Introduction of Other Therapeutic Substance into Subcutaneous Tissue, Percutaneous Approach (ICD-10-PCS; 2019-01-02)
DX: E87.2 Acidosis (principal); R74.0 Nonspecific elevation of levels of transaminase and lactic acid dehydrogenase [LDH]; R10.33 Periumbilical pain; K52.9 Noninfective gastroenteritis and colitis, unspecified; D72.829 Elevated white blood cell count, unspecified; I10 Essential (primary) hypertension; E11.9 Type 2 diabetes mellitus without complications; Z87.442 Personal history of urinary calculi; Z88.6 Allergy status to analgesic agent
CPT/HCPCS: 36415; 71045-TC-FY; 74177-TC; 80048; 80053; 81003; 82962; 83605; 83690; 83735; 84100; 84484; 85025; 87040; 87045; 87046; 87205; 87324; 87449; 93005; 93010; 96361; 96365; 96375; 99283-25; G0378; J0131; J1644; J7030